=== PATIENT | female | born 1980 | race Hispanic/Latino ===

== ENCOUNTER 2017-09-21 14:47 | Emergency (ER) | payer OTHER ==
[~2017-09-21] VITALS: Ht 165.1 cm; Wt 71.7 kg
[~2017-09-21 14:47] MED LIST: CIPRO500 M1 PO; NORCO 5-325 TA1 EACH PO; PROTONIX 40MG T40 MG PO; ZOFRAN ODT4 M1 SL
[2017-09-21] MEDS ORDERED: VENTOLIN HFA18 GM INH (17:25)
[2017-09-21] MEDS ORDERED: NASONEX17 GM (17:25)
[2017-09-21 17:48] VITALS: BP 108/56
[2017-09-21] MEDS ORDERED: DOXYCYCLINE HY100 M2 PO (18:16)
--- NOTE | 2017-09-21 18:16 | ED GI/GU/ABDOMINAL COMPLAINT ---
History of Present Illness General Chief Complaint: General Adult Stated Complaint: STAPH INFECTION IN "PRIVATE AREA" PER PT Source: patient Exam Limitations: no limitations Vital Signs & Intake/Output Vital Signs & Intake/Output Vital Signs Date Time Temp Pulse Resp B/P B/P Pulse O2 O2 Flow FiO2 Mean Ox Delivery Rate 09/21 1748 98.0 72 18 108/56 98 Room Air 09/21 1451 98.0 83 18 118/80 97 Room Air Allergies Coded Allergies: animal dander (TRIGGERS ASTHMA 09/21/17) oxycodone (PER PT PERCOCET MADE FEET SWELL 09/21/17) Reconcile Medications Albuterol Sulfate (Ventolin Hfa) 90 MCG HFA.AER.AD 2 PUF INH AD PRN ASTHMA ( Reported) Doxycycline Hyclate 100 MG CAPSULE 1 CAP PO BID labial abscess Mometasone Furoate (Nasonex) (Unknown Strength) SPRAY.PUMP (Unknown Dose) UNKNOWN (Reported) Triage Note: PT FROM HOME C/O STAPH INFECTON TO LEFT LABIA SINCE FRIDAY. PT STATES SHE HAS HAD 2 MRSA INFECTIONS IN DIFFERENT AREAS WITHIN THE PAST 2 MONTHS AND BELIEVES THIS ONE IS THE SAME. PT STATES THE PAIN IS 9/10 WHEN SHE IS IN A SITTING POSITION, NO TROUBLE URINATING OR S/S OF UTI. PT STATES PAIN HAS BEEN RADIATING THROUGHTOUT THE AREA, A THROBBING SENSATION. UNABLE TO VIEW IN TRIAGE. VSS. Triage Nurses Notes Reviewed? yes ? n Is pt currently ? No Duration: day(s): Timing: recent history HPI: 36yo female with PMH of endometriosis, asthma, MRSA cellulititis c/o worsening pain and size of lesion on her external genitalia. 3 days ago, pt noticed lesion on the L external labia. Lesion has increased in size and pain since. Pt states that she took a hot shower which did not help. Denies any discharge, fevers, chills. Denies any history of STI or genital herpes. Pt is currently on her menstural period. (Saurabh Jaramillo) Past History Travel History Traveled to [place] past 21 day No Medical History Any Pertinent Medical History? see below for history Neurological: NONE EENT: NONE Cardiovascular: NONE Respiratory: asthma Gastrointestinal: NONE Hepatic: NONE Renal: NONE Musculoskeletal: NONE Psychiatric: NONE Endocrine: NONE Blood Disorders: NONE Cancer(s): NONE PRODUCTION PROOFREADER/Reproductive: NONE Surgical History Surgical History: , tubal ligation Psychosocial History What is your primary language Serbian Tobacco Use: Never used Family History Hx Contributory? No (Saurabh Jaramillo) Review of Systems Review of Systems Constitutional: Reports: no symptoms. EENTM: Reports: no symptoms. Respiratory: Reports: no symptoms. Cardiovascular: Reports: no symptoms. GI: Reports: see HPI. Genitourinary: Reports: see HPI. Musculoskeletal: Reports: no symptoms. Skin: Reports: see HPI. Neurological/Psychological: Reports: no symptoms. Hematologic/Endocrine: Reports: no symptoms. Immunologic/Allergic: Reports: no symptoms. All Other Systems: Reviewed and Negative (Saurabh Jaramillo) Physical Exam Physical Exam General Appearance: well developed/nourished, no apparent distress, alert, awake Head: atraumatic, normal appearance Eyes: Bilateral: normal appearance, PERRL, EOMI. Ears, Nose, Throat, Mouth: hearing grossly normal, moist mucous membrane Neck: normal inspection Respiratory: no respiratory distress Gastrointestinal: soft Pelvic: swelling to left labia majora, discharge purulence/bloody, Extremities: normal range of motion Neurologic/Psych: awake, alert, oriented x 3 Skin: intact Core Measures ACS in differential dx? No Sepsis Present: No Sepsis Focused Exam Completed? No (Saurabh Jaramillo) Progress Differential Diagnosis: UTI/pyelo, labial abscess, Bartholin cyst, cellulitis, Plan of Care: Orders Procedure Date/time Status GENITAL CULTURE 09/21 1814 Active Microbiology 09/21 1814 GENITAL: Genital Culture - RECD Initial ED EKG: none (Saurabh Jaramillo) Departure Departure Disposition: HOME OR SELF CARE Condition: Stable Clinical Impression Primary Impression: Left genital labial abscess Referrals: Jahaira PEREZ,Guy Chester (PCP/Family) Additional Instructions: Warm sits baths at home. Take doxycycline as prescribed. Follow-up with [facility] this week for recheck. Please go over all results of today's visit with your primary care doctor. Contact your primary care doctor to let them know you were here in the emergency room. There may be nonspecific findings which may not be related to your visit today here in the emergency room but may require further evaluation and chronic monitoring by your primary care doctor. If you had a laceration today the chance of foreign body always remains. You should follow-up with your primary care doctor for recheck in 3-5 days for a wound check. If you had an x-ray done there is a chance that a fracture could have been missed on initial read and you should follow-up with your primary care doctor for repeat x-rays if symptoms persist. If your blood pressure was elevated here in the emergency room please have rechecked by hyour primary care doctor within the next 48. If you were prescribed a narcotic here in the emergency room or any type of controlled substances you're not allowed to drive while taking this medication or operate any type of heavy machinery. Narcotics can make you feel lightheaded dizziness nausea and can cause constipation. You may need to leaf size picker a stool softener. Thank you for choosing [facility] emergency room. Please return to the emergency room immediately if you have any other concerns worsening of symptoms. Departure Forms: Customer Survey General Discharge Information Prescriptions: Current Visit Scripts Doxycycline Hyclate 1 CAP PO BID #[id number] CAP Comments 09/21/2017 9:28:18 PM Due to the fact that the abscess is opening and draining patient was started on oral antibiotics and told to sitz bath at home. Return if any other concerns. (Saurabh Jaramillo) PA/FLAME GOUGER Co-Sign Statement Statement: ED Attending supervision documentation- [] I saw and evaluated the patient. I have also reviewed all the pertinent lab results and diagnostic results. I agree with the findings and the plan of care as documented in the PA's/FLAME GOUGER's documentation. [x] I have reviewed the ED Record and agree with the PA's/FLAME GOUGER's documentation. [] Additions or exceptions (if any) to the PAs/FLAME GOUGER's note and plan are summarized below: [] (Hayde PEREZ,Germán Rodriguez)
== END 2017-09-21 18:38 ==
LOC: ERH 14:47
DX: N76.4 Abscess of vulva (principal)
CPT/HCPCS: 87070; 87184